=== PATIENT | female | born 1950 | race Caucasian/White ===

== ENCOUNTER → 2016-10-01 | Outpatient (CLI) | payer MEDICARE ==
[~2016-10-01] MED LIST: B6 PO; CALC-160 PO; CARNITINE PO; CHOL10003 PO; CHONDROITIN MSM; COCO100O2 PO; CYAN1TAB29 PO; EXEM25TA2 PO; FLAX340P PO; GABA600T2 PO; MILK500C PO; MULTI PO; TUMERIC PO; VITA1TAB46 PO; [UNRECOGNIZED DRUG - CODE] PO; [UNRECOGNIZED DRUG - MIXTURE]; [UNRECOGNIZED DRUG - OTHER]; [UNRECOGNIZED DRUG - OTHER] PO; [UNRECOGNIZED DRUG - OTHER] PO; [UNRECOGNIZED DRUG - OTHER] PO; kelp PO; probiotics
== END | disposition home or self-care (01) ==
LOC: RAD 13:33
PROVIDERS: ATTEND Nurse Practitioner Gerontology
DX: M17.0 Bilateral primary osteoarthritis of knee (principal); M25.762 Osteophyte, left knee; M25.462 Effusion, left knee; M25.461 Effusion, right knee

== ENCOUNTER → 2016-10-15 | Outpatient (CLI) | payer MEDICARE | END | disposition home or self-care (01) | LOC: CFH 10:33 | PROVIDERS: ATTEND Nurse Practitioner Gerontology | DX: Z13.820 Encounter for screening for osteoporosis (principal); C79.51 Secondary malignant neoplasm of bone; M25.561 Pain in right knee; M25.562 Pain in left knee; G89.29 Other chronic pain; Z91.81 History of falling; Z78.0 Asymptomatic menopausal state; Z90.13 Acquired absence of bilateral breasts and nipples | CPT/HCPCS: 77080 ==

== ENCOUNTER → 2016-10-22 | Outpatient (CLI) | payer MEDICARE ==
[~2016-10-22] MED LIST changes: +CELE100C PO; +LETR2.5T PO
== END | disposition home or self-care (01) ==
LOC: PETCFH 09:19
PROVIDERS: ATTEND Nurse Practitioner Gerontology
DX: C79.51 Secondary malignant neoplasm of bone (principal); C78.7 Secondary malignant neoplasm of liver and intrahepatic bile duct; C77.9 Secondary and unspecified malignant neoplasm of lymph node, unspecified; C78.00 Secondary malignant neoplasm of unspecified lung; J90 Pleural effusion, not elsewhere classified; J98.11 Atelectasis; Z85.3 Personal history of malignant neoplasm of breast; Z90.13 Acquired absence of bilateral breasts and nipples
CPT/HCPCS: 71020; 78815; A9552

== ENCOUNTER 2016-10-23 14:01 | Inpatient (IN) | payer MEDICARE ==
[~2016-10-23] VITALS: Ht 162.6 cm; Wt 69.3 kg
[~2016-10-23 14:01] MED LIST changes: -CELE100C PO; -LETR2.5T PO
[2016-10-23] MEDS ORDERED: SODIUM CHLORIDE FLUSH 10ML SYR IVF ONE (15:00)
[2016-10-23 15:36] LABS: HEMATOCRIT 40.7 % (34.6-47.8); HEMOGLOBIN 13.1 g/dL (11.7-16.4); WHITE BLOOD COUNT 6.1 x10^3/uL (3.4-10)
[2016-10-23 15:41] LABS: BLOOD UREA NITROGEN 14 mg/dL (7-18)
[2016-10-23] MEDS ORDERED: LIDOCAINE 1%, 20ML ONE (15:41)
[2016-10-23 15:46] LABS: ASPARTATE AMINO TRANSFERASE 56 U/L (15-37)
[2016-10-23 15:48] LABS: IS PT STATUS REG ER OR PRE ER? YES
[2016-10-23] MEDS ORDERED: CELE100C PO (16:41)
[2016-10-23] MEDS ORDERED: LETR2.5T PO (16:41)
[2016-10-23] MEDS ORDERED: GABA600T2 PO (16:41)
[2016-10-23] MEDS: GABAPENTIN 900 MG PO SCH ×2 (17:00→18:04)
[2016-10-23] MEDS ORDERED: SODIUM CHLORIDE FLUSH 10ML SYR IVF PRN (17:00)
[2016-10-23] MEDS ORDERED: ACETAMINOPHEN 325 MG TABLET PO PRN (17:30)
[2016-10-23] MEDS ORDERED: ONDANSETRON 2MG/ML, 2ML IVPush PRN (17:30)
[2016-10-23] MEDS ORDERED: morphine SULFATE 10 MG/ML, 1ML IVPush PRN (17:30)
[2016-10-23 18:45] VITALS: BP 154/79
[2016-10-23 20:25] VITALS: BP 154/79
[2016-10-23] MEDS: SODIUM CHLORIDE FLUSH 10ML SYR IVF SCH (21:00)
[2016-10-23] MEDS: LETROZOLE 2.5 MG TABLET PO SCH (21:00)
[2016-10-23] MEDS ORDERED: TUMERIC 1000 MG PO SCH (21:00)
[2016-10-24] MEDS: GABAPENTIN 300 MG CAPSULE PO SCH ×4 (00:23→23:19)
[2016-10-24 01:10] VITALS: BP 134/70
[2016-10-24] MEDS: KETOROLAC 30 MG/1 ML IVPush PRN ×2 (02:58→23:21)
[2016-10-24 06:57] VITALS: BP 129/79
[2016-10-24] MEDS: SODIUM CHLORIDE FLUSH 10ML SYR IVF SCH ×2 (09:00→20:37)
[2016-10-24] MEDS: SODIUM CHLORIDE 0.9% 1,000 ML IV SCH (11:32)
[2016-10-24 12:00] VITALS: BP 119/70
[2016-10-24] MEDS ORDERED: LIDOCAINE 1%, 20ML ONE (13:14)
[2016-10-24] MEDS ORDERED: FENTANYL PF 100 MCG/2ML ONE ×3 (13:47→15:11)
[2016-10-24] MEDS ORDERED: MIDAZOLAM 1 MG/ML, 2ML ONE (13:47)
[2016-10-24] MEDS ORDERED: ONDANSETRON 2MG/ML, 2ML ONE ×2 (14:15→18:25)
[2016-10-24] MEDS ORDERED: CEFAZOLIN 1,000 MG ONE (14:15)
[2016-10-24] MEDS ORDERED: SUCCINYLCHOLINE 20 MG/ML, 10ML ONE (14:15)
[2016-10-24] MEDS ORDERED: PROPOFOL 10 MG/ML, 20ML ONE (14:15)
[2016-10-24] MEDS ORDERED: DEXAMETHASONE 4 MG/ML, 1ML ONE (14:15)
[2016-10-24] MEDS ORDERED: EPHEDRINE 50 MG/ML, 1ML ONE (14:15)
[2016-10-24] MEDS ORDERED: TRANEXAMIC ACID 100 MG/ML, 10ML ONE (14:36)
[2016-10-24] MEDS ORDERED: HYDROmorphone 1 MG/ML, 1ML ONE ×2 (15:53→17:31)
[2016-10-24] MEDS ORDERED: ACETAMINOPHEN 325 MG TABLET PO PRN (16:30)
[2016-10-24] MEDS ORDERED: ONDANSETRON 2MG/ML, 2ML IVPush PRN (16:30)
[2016-10-24] MEDS ORDERED: PROMETHAZINE 25 MG/ML, 1ML IV PRN (16:30)
[2016-10-24] MEDS ORDERED: ALBUTEROL/IPRATROPIUM 2.5MG/0.5MG, 3 ML NPPB PRN (16:30)
[2016-10-24] MEDS ORDERED: FENTANYL PF 100 MCG/2ML IV PRN (16:30)
[2016-10-24] MEDS ORDERED: MEPERIDINE/PF 25MG/0.5ML IVPush PRN (16:30)
[2016-10-24] MEDS ORDERED: hydrALAzine 20 MG/ML, 1ML IV PRN (16:30)
[2016-10-24] MEDS ORDERED: OXYcodone 5 MG/5 ML ORAL.SOL UDC PO PRN (16:30)
[2016-10-24] MEDS ORDERED: LABETALOL 5MG/ML, 20ML IV PRN (16:30)
[2016-10-24] MEDS ORDERED: MIDAZOLAM 1 MG/ML, 2ML IV PRN (16:30)
[2016-10-24] MEDS ORDERED: OXYcodone 5 MG/5 ML ORAL.SOL UDC ONE (17:31)
[2016-10-24] MEDS: HYDROmorphone 1 MG/ML, 1ML IV PRN ×3 (17:36→18:12)
[2016-10-24] MEDS ORDERED: BUPIVACAINE/PF 0.25% ONE (18:08)
[2016-10-24 18:54] VITALS: BP 145/80
[2016-10-24] MEDS: LETROZOLE 2.5 MG TABLET PO SCH (21:00)
[2016-10-25 00:51] VITALS: BP 126/68
[2016-10-25 04:36] LABS: HEMATOCRIT 37.9 % (34.6-47.8); HEMOGLOBIN 12.3 g/dL (11.7-16.4); WHITE BLOOD COUNT 7.2 x10^3/uL (3.4-10)
[2016-10-25 04:51] LABS: ASPARTATE AMINO TRANSFERASE 95 U/L (15-37); BLOOD UREA NITROGEN 9 mg/dL (7-18)
[2016-10-25 06:44] VITALS: BP 109/59
[2016-10-25] MEDS: SODIUM CHLORIDE FLUSH 10ML SYR IVF SCH ×2 (09:00→21:20)
[2016-10-25] MEDS: GABAPENTIN 300 MG CAPSULE PO SCH ×2 (11:50→21:18)
[2016-10-25 12:53] VITALS: BP 107/55
[2016-10-25] MEDS: KETOROLAC 30 MG/1 ML IVPush PRN ×2 (14:12→23:18)
[2016-10-25] MEDS: OXYcodone IR 5MG TABLET PO PRN ×3 (16:33→21:38)
[2016-10-25] MEDS: SODIUM CHLORIDE 0.9% 1,000 ML IV SCH ×2 (16:36→21:30)
[2016-10-25 18:22] VITALS: BP 104/50
[2016-10-25] MEDS ORDERED: ACETAMINOPHEN 325 MG TABLET PO PRN ×2 (19:30→21:30)
[2016-10-25] MEDS ORDERED: morphine SULFATE 10 MG/ML, 1ML IVPush PRN ×2 (19:30→21:30)
[2016-10-25] MEDS ORDERED: SODIUM CHLORIDE FLUSH 10ML SYR IVF SCH (21:00)
[2016-10-25] MEDS: LETROZOLE 2.5 MG TABLET PO SCH (21:00)
[2016-10-25] MEDS ORDERED: ONDANSETRON 2MG/ML, 2ML IVPush PRN (21:30)
[2016-10-26 02:10] VITALS: BP 102/50
[2016-10-26] MEDS: GABAPENTIN 300 MG CAPSULE PO SCH ×3 (04:02→21:48)
[2016-10-26] MEDS: SODIUM CHLORIDE 0.9% 1,000 ML IV SCH (04:06)
[2016-10-26] MEDS: OXYcodone IR 5MG TABLET PO PRN ×3 (04:13→23:25)
[2016-10-26 07:00] VITALS: BP 102/61
[2016-10-26] MEDS: SODIUM CHLORIDE FLUSH 10ML SYR IVF SCH ×2 (09:00→21:48)
[2016-10-26 12:54] VITALS: BP 108/65
[2016-10-26] MEDS: ENOXAPARIN 40 MG/0.4 ML SQ SCH (16:47)
[2016-10-26 18:40] VITALS: BP 101/55
[2016-10-26] MEDS: LETROZOLE 2.5 MG TABLET PO SCH (21:00)
[2016-10-27] MEDS ORDERED: OMNIPAQUE 350 MG/ML, 100ML BOTTLE ONE (00:26)
[2016-10-27 00:40] VITALS: BP 127/67
[2016-10-27] MEDS: GABAPENTIN 300 MG CAPSULE PO SCH ×3 (03:33→21:08)
[2016-10-27] MEDS: OXYcodone IR 5MG TABLET PO PRN ×5 (03:50→21:08)
[2016-10-27 05:13] LABS: HEMATOCRIT 36.3 % (34.6-47.8); HEMOGLOBIN 11.7 g/dL (11.7-16.4); WHITE BLOOD COUNT 7.8 x10^3/uL (3.4-10)
[2016-10-27 05:26] LABS: ASPARTATE AMINO TRANSFERASE 124 U/L (15-37); BLOOD UREA NITROGEN 9 mg/dL (7-18)
[2016-10-27 07:42] VITALS: BP 128/68
[2016-10-27] MEDS: SODIUM CHLORIDE FLUSH 10ML SYR IVF SCH ×2 (08:10→21:09)
[2016-10-27 13:38] VITALS: BP 125/70
[2016-10-27] MEDS: ENOXAPARIN 40 MG/0.4 ML SQ SCH (16:14)
[2016-10-27 20:22] VITALS: BP 126/71
[2016-10-27] MEDS: LETROZOLE 2.5 MG TABLET PO SCH (23:20)
[2016-10-28] MEDS: OXYcodone IR 5MG TABLET PO PRN ×6 (03:50→23:11)
[2016-10-28] MEDS: GABAPENTIN 300 MG CAPSULE PO SCH ×3 (04:00→20:52)
[2016-10-28] MEDS: SODIUM CHLORIDE FLUSH 10ML SYR IVF SCH ×2 (09:00→20:52)
[2016-10-28] MEDS ORDERED: GADOBUTROL 7.5 MMOL/7.5 ML PFS ONE (12:47)
[2016-10-28 13:42] VITALS: BP 130/67
[2016-10-28] MEDS: ENOXAPARIN 40 MG/0.4 ML SQ SCH (14:35)
[2016-10-28 19:15] VITALS: BP 128/70
[2016-10-28] MEDS: LETROZOLE 2.5 MG TABLET PO SCH (21:00)
[2016-10-29 02:30] VITALS: BP 110/66
[2016-10-29] MEDS: GABAPENTIN 300 MG CAPSULE PO SCH ×4 (04:00→20:21)
[2016-10-29 04:39] LABS: HEMATOCRIT 32.9 % (34.6-47.8); HEMOGLOBIN 10.6 g/dL (11.7-16.4); WHITE BLOOD COUNT 7.4 x10^3/uL (3.4-10)
[2016-10-29 04:55] LABS: BLOOD UREA NITROGEN 7 mg/dL (7-18)
[2016-10-29 04:58] LABS: ASPARTATE AMINO TRANSFERASE 78 U/L (15-37)
[2016-10-29 06:52] VITALS: BP 114/66
[2016-10-29] MEDS: OXYcodone IR 5MG TABLET PO PRN ×3 (08:03→22:16)
[2016-10-29] MEDS: SODIUM CHLORIDE FLUSH 10ML SYR IVF SCH ×2 (08:04→20:26)
[2016-10-29] MEDS ORDERED: FENTANYL PF 100 MCG/2ML ONE ×2 (10:31)
[2016-10-29] MEDS ORDERED: MIDAZOLAM 1 MG/ML, 5ML ONE (10:32)
[2016-10-29] MEDS ORDERED: FLUMAZENIL 0.1 MG/1 ML, 5ML ONE (10:32)
[2016-10-29] MEDS ORDERED: LIDOCAINE 1%, 20ML ONE (10:32)
[2016-10-29] MEDS ORDERED: NALOXONE 1 MG/ML, 2ML ONE (10:32)
[2016-10-29 14:00] VITALS: BP 111/43
[2016-10-29] MEDS: ENOXAPARIN 40 MG/0.4 ML SQ SCH (17:00)
[2016-10-29 19:02] VITALS: BP 139/61
[2016-10-29] MEDS: LETROZOLE 2.5 MG TABLET PO SCH (21:31)
[2016-10-30 02:50] VITALS: BP 110/65
[2016-10-30] MEDS: GABAPENTIN 300 MG CAPSULE PO SCH ×3 (04:50→21:31)
[2016-10-30] MEDS: OXYcodone IR 5MG TABLET PO PRN ×3 (06:09→16:04)
[2016-10-30 06:55] VITALS: BP 125/68
[2016-10-30] MEDS: SODIUM CHLORIDE FLUSH 10ML SYR IVF SCH ×2 (10:37→21:00)
[2016-10-30 13:25] VITALS: BP 116/65
[2016-10-30] MEDS: ENOXAPARIN 40 MG/0.4 ML SQ SCH (16:04)
[2016-10-30 18:46] VITALS: BP 126/66
[2016-10-30] MEDS: LETROZOLE 2.5 MG TABLET PO SCH (21:35)
[2016-10-31] MEDS: OXYcodone IR 5MG TABLET PO PRN ×6 (01:06→21:40)
[2016-10-31 02:33] VITALS: BP 131/68
[2016-10-31] MEDS: GABAPENTIN 300 MG CAPSULE PO SCH ×3 (03:34→20:55)
[2016-10-31 08:00] VITALS: BP 129/72
[2016-10-31] MEDS: SODIUM CHLORIDE FLUSH 10ML SYR IVF SCH ×2 (09:00→21:00)
[2016-10-31 12:07] VITALS: BP 122/72
[2016-10-31] MEDS: ENOXAPARIN 40 MG/0.4 ML SQ SCH (17:35)
[2016-10-31 18:18] VITALS: BP 119/64
[2016-10-31] MEDS: LETROZOLE 2.5 MG TABLET PO SCH (20:54)
[2016-11-01 01:45] VITALS: BP 137/77
[2016-11-01] MEDS: GABAPENTIN 300 MG CAPSULE PO SCH ×3 (04:08→21:13)
[2016-11-01 06:50] VITALS: BP 118/68
[2016-11-01] MEDS: SODIUM CHLORIDE FLUSH 10ML SYR IVF SCH ×2 (07:53→21:14)
[2016-11-01] MEDS: OXYcodone IR 5MG TABLET PO PRN ×4 (07:53→21:14)
[2016-11-01] MEDS ORDERED: ACETAMINOPHEN 325 MG TABLET PO PRN (14:00)
[2016-11-01] MEDS ORDERED: ONDANSETRON 2MG/ML, 2ML IVPush PRN (14:00)
[2016-11-01 14:25] VITALS: BP 143/78
[2016-11-01] MEDS: ENOXAPARIN 40 MG/0.4 ML SQ SCH (17:05)
[2016-11-01 18:43] VITALS: BP 122/64
[2016-11-01] MEDS: LETROZOLE 2.5 MG TABLET PO SCH (21:00)
[2016-11-02] MEDS: OXYcodone IR 5MG TABLET PO PRN ×5 (01:32→20:43)
[2016-11-02] MEDS: GABAPENTIN 300 MG CAPSULE PO SCH ×3 (03:43→20:42)
[2016-11-02 03:50] VITALS: BP 124/73
[2016-11-02 06:57] VITALS: BP 147/70
[2016-11-02] MEDS: SODIUM CHLORIDE FLUSH 10ML SYR IVF SCH ×2 (09:00→20:45)
[2016-11-02 14:32] VITALS: BP 134/73
[2016-11-02] MEDS: ENOXAPARIN 40 MG/0.4 ML SQ SCH (16:58)
[2016-11-02 19:11] VITALS: BP 148/71
[2016-11-02] MEDS: LETROZOLE 2.5 MG TABLET PO SCH (20:41)
[2016-11-03 01:06] VITALS: BP 121/71
[2016-11-03] MEDS: OXYcodone IR 5MG TABLET PO PRN ×4 (02:11→20:56)
[2016-11-03] MEDS: GABAPENTIN 300 MG CAPSULE PO SCH ×3 (04:46→17:30)
[2016-11-03 07:19] VITALS: BP 138/79
[2016-11-03] MEDS: SODIUM CHLORIDE FLUSH 10ML SYR IVF SCH ×2 (08:59→20:57)
[2016-11-03 13:49] VITALS: BP 150/75
[2016-11-03] MEDS: ENOXAPARIN 40 MG/0.4 ML SQ SCH (17:30)
[2016-11-03 18:44] VITALS: BP 126/71
[2016-11-03] MEDS: LETROZOLE 2.5 MG TABLET PO SCH (23:10)
[2016-11-04] MEDS: OXYcodone IR 5MG TABLET PO PRN ×4 (00:47→20:14)
[2016-11-04 00:59] VITALS: BP 133/72
[2016-11-04] MEDS: GABAPENTIN 300 MG CAPSULE PO SCH ×4 (01:54→20:14)
[2016-11-04 04:35] LABS: HEMATOCRIT 35.9 % (34.6-47.8); HEMOGLOBIN 11.9 g/dL (11.7-16.4); WHITE BLOOD COUNT 8.3 x10^3/uL (3.4-10)
[2016-11-04 04:58] LABS: ASPARTATE AMINO TRANSFERASE 44 U/L (15-37); BLOOD UREA NITROGEN 6 mg/dL (7-18)
[2016-11-04 06:45] VITALS: BP 129/68
[2016-11-04] MEDS: SODIUM CHLORIDE FLUSH 10ML SYR IVF SCH ×2 (09:10→20:16)
[2016-11-04] MEDS: SODIUM CHLORIDE 0.9% 1,000 ML IV SCH (10:30)
[2016-11-04 14:00] VITALS: BP 130/75
[2016-11-04] MEDS ORDERED: LIDOCAINE 2%, 20ML ONE (14:24)
[2016-11-04] MEDS ORDERED: MIDAZOLAM 1 MG/ML, 5ML ONE (14:27)
[2016-11-04] MEDS ORDERED: FLUMAZENIL 0.1 MG/1 ML, 5ML ONE (14:28)
[2016-11-04] MEDS ORDERED: NALOXONE 1 MG/ML, 2ML ONE (14:28)
[2016-11-04] MEDS ORDERED: FENTANYL PF 100 MCG/2ML ONE (14:28)
[2016-11-04] MEDS: ENOXAPARIN 40 MG/0.4 ML SQ SCH (17:09)
[2016-11-04 19:27] VITALS: BP 132/75
[2016-11-04] MEDS: LETROZOLE 2.5 MG TABLET PO SCH (20:12)
[2016-11-05] MEDS: OXYcodone IR 5MG TABLET PO PRN ×6 (00:20→21:54)
[2016-11-05] MEDS: SODIUM CHLORIDE 0.9% 1,000 ML IV SCH (00:29)
[2016-11-05 01:19] VITALS: BP 142/68
[2016-11-05] MEDS: GABAPENTIN 300 MG CAPSULE PO SCH ×3 (01:33→17:07)
[2016-11-05 07:20] VITALS: BP 106/64
[2016-11-05] MEDS: SODIUM CHLORIDE FLUSH 10ML SYR IVF SCH ×2 (09:03→21:00)
[2016-11-05 14:20] VITALS: BP 124/59
[2016-11-05] MEDS: ENOXAPARIN 40 MG/0.4 ML SQ SCH (17:07)
[2016-11-05 18:24] VITALS: BP 145/75
[2016-11-05] MEDS: LETROZOLE 2.5 MG TABLET PO SCH (21:01)
[2016-11-06] MEDS: GABAPENTIN 300 MG CAPSULE PO SCH ×3 (01:07→16:11)
[2016-11-06 01:30] VITALS: BP 108/67
[2016-11-06] MEDS: OXYcodone IR 5MG TABLET PO PRN ×5 (02:54→22:34)
[2016-11-06 07:38] VITALS: BP 133/68
[2016-11-06] MEDS: SODIUM CHLORIDE FLUSH 10ML SYR IVF SCH ×2 (07:39→22:21)
[2016-11-06 13:34] VITALS: BP 102/54
[2016-11-06] MEDS: ENOXAPARIN 40 MG/0.4 ML SQ SCH (16:11)
[2016-11-06] MEDS: METHOCARBAMOL 1,000 MG in DEXTROSE 5% 100 ML IV SCH (16:12)
[2016-11-06 19:32] VITALS: BP 126/72
[2016-11-06] MEDS: LETROZOLE 2.5 MG TABLET PO SCH (21:00)
[2016-11-07] MEDS: METHOCARBAMOL 1,000 MG in DEXTROSE 5% 100 ML IV SCH ×2 (00:31→08:35)
[2016-11-07] MEDS: GABAPENTIN 300 MG CAPSULE PO SCH ×3 (00:31→17:23)
[2016-11-07 01:54] VITALS: BP 133/66
[2016-11-07] MEDS: OXYcodone IR 5MG TABLET PO PRN ×5 (05:04→21:46)
[2016-11-07 07:21] VITALS: BP 123/74
[2016-11-07] MEDS: SODIUM CHLORIDE FLUSH 10ML SYR IVF SCH ×2 (08:35→20:17)
[2016-11-07 14:11] VITALS: BP 115/70
[2016-11-07] MEDS: ENOXAPARIN 40 MG/0.4 ML SQ SCH (17:24)
[2016-11-07 18:52] VITALS: BP 118/70
[2016-11-07] MEDS: LETROZOLE 2.5 MG TABLET PO SCH (20:18)
[2016-11-08 01:06] VITALS: BP 140/70
[2016-11-08] MEDS: GABAPENTIN 300 MG CAPSULE PO SCH ×3 (01:57→17:43)
[2016-11-08] MEDS: OXYcodone IR 5MG TABLET PO PRN ×4 (01:57→22:23)
[2016-11-08] MEDS: SODIUM CHLORIDE FLUSH 10ML SYR IVF SCH ×2 (08:37→21:22)
[2016-11-08 09:06] VITALS: BP 102/53
[2016-11-08 14:49] VITALS: BP 113/62
[2016-11-08] MEDS: ENOXAPARIN 40 MG/0.4 ML SQ SCH (17:43)
[2016-11-08 18:34] VITALS: BP 110/68
[2016-11-08] MEDS: LETROZOLE 2.5 MG TABLET PO SCH (21:17)
[2016-11-09] MEDS: GABAPENTIN 300 MG CAPSULE PO SCH ×3 (01:10→17:45)
[2016-11-09 02:45] VITALS: BP 138/72
[2016-11-09] MEDS: OXYcodone IR 5MG TABLET PO PRN ×5 (05:00→23:55)
[2016-11-09 06:59] VITALS: BP 119/54
[2016-11-09] MEDS: SODIUM CHLORIDE FLUSH 10ML SYR IVF SCH (09:58)
[2016-11-09 13:54] VITALS: BP 115/64
[2016-11-09] MEDS: ENOXAPARIN 40 MG/0.4 ML SQ SCH (16:30)
[2016-11-09 19:13] VITALS: BP 140/64
[2016-11-09] MEDS: LETROZOLE 2.5 MG TABLET PO SCH (21:00)
[2016-11-10] MEDS: GABAPENTIN 300 MG CAPSULE PO SCH ×2 (01:24→10:04)
[2016-11-10 02:26] VITALS: BP 121/60
[2016-11-10] MEDS: OXYcodone IR 5MG TABLET PO PRN ×3 (04:00→15:48)
[2016-11-10 07:16] VITALS: BP 112/61
[2016-11-10] MEDS ORDERED: ONDA4TAB13 SL ×2 (09:34→10:11)
[2016-11-10] MEDS ORDERED: OXYC5TAB3 PO (09:34)
[2016-11-10] MEDS ORDERED: ENOX40SY4 SQ (09:34)
[2016-11-10] MEDS ORDERED: POLY17PO5 PO (09:36)
[2016-11-10 15:21] VITALS: BP 137/54
== END 2016-11-10 16:40 | DRG 480 ==
LOC: ED 15:36 → EDIP 16:57 → SUATTDRO 17:03 → 3NW 18:43
PROVIDERS: ADMIT Internal Medicine; ATTEND Internal Medicine
PROC: 0W993ZZ Drainage of Right Pleural Cavity, Percutaneous Approach (ICD-10-PCS; 2016-10-23)
PROC: 0W993ZZ Drainage of Right Pleural Cavity, Percutaneous Approach (ICD-10-PCS; 2016-10-24)
PROC: 0QH736Z Insertion of Intramedullary Internal Fixation Device into Left Upper Femur, Percutaneous Approach (ICD-10-PCS; principal; 2016-10-24 14:00)
PROC: 07DR3ZX Extraction of Iliac Bone Marrow, Percutaneous Approach, Diagnostic (ICD-10-PCS; 2016-10-29)
PROC: 0W9930Z Drainage of Right Pleural Cavity with Drainage Device, Percutaneous Approach (ICD-10-PCS; 2016-11-04)
DX: M84.452A Pathological fracture, left femur, initial encounter for fracture (principal); E43 Unspecified severe protein-calorie malnutrition; J91.0 Malignant pleural effusion; C78.00 Secondary malignant neoplasm of unspecified lung; C50.919 Malignant neoplasm of unspecified site of unspecified female breast; C78.7 Secondary malignant neoplasm of liver and intrahepatic bile duct; D64.9 Anemia, unspecified; C79.51 Secondary malignant neoplasm of bone; J93.9 Pneumothorax, unspecified; F32.9 Major depressive disorder, single episode, unspecified; F41.9 Anxiety disorder, unspecified; R09.02 Hypoxemia; Z79.811 Long term (current) use of aromatase inhibitors; Z80.3 Family history of malignant neoplasm of breast; Z85.3 Personal history of malignant neoplasm of breast; Z86.73 Personal history of transient ischemic attack (TIA), and cerebral infarction without residual deficits; Z92.21 Personal history of antineoplastic chemotherapy; Z90.13 Acquired absence of bilateral breasts and nipples; Z68.26 Body mass index [BMI] 26.0-26.9, adult; Z88.8 Allergy status to other drugs, medicaments and biological substances; Z88.6 Allergy status to analgesic agent
CPT/HCPCS: 20220; 32555; 36415; 70470; 70553; 71010; 71020; 71250; 76001; 77012; 80053; 81003; 82150; 82565; 82945; 83605; 83615; 83735; 83880; 83986; 84100; 84157; 84484; 85025; 85610; 85730; 87040; 87070; 87075; 87102; 87116; 87205; 87206; 88304; 88305; 88307; 88311; 88341; 88342; 88360; 88361; 88374; 89051; 93005; 99156; 99157; 99291; A9585; C1713; J0690; J1100; J1170; J1650; J1885; J2250; J2405; J2704; J3010; J3490; Q9967; C1729; G0461; J0330; J2310; J2800; J7030

== ENCOUNTER 2016-11-16 14:54 | Inpatient (IN) | payer MEDICARE ==
[~2016-11-16] VITALS: Ht 162.6 cm; Wt 69.1 kg
[~2016-11-16 14:54] MED LIST changes: +CELE100C PO; +ENOX40SY4 SQ; +LETR2.5T PO; +ONDA4TAB13 SL; +OXYC5TAB3 PO; +POLY17PO5 PO
[2016-11-16 15:51] VITALS: BP 122/75
[2016-11-16] MEDS ORDERED: MAGN400T7 PO (16:10)
[2016-11-16] MEDS ORDERED: DOCU100C33 PO (16:10)
[2016-11-16] MEDS ORDERED: ZINC50TA2 PO (16:10)
[2016-11-16] MEDS ORDERED: ENOX40SY4 SQ (16:17)
[2016-11-16] MEDS ORDERED: CHOL100012 PO (16:17)
[2016-11-16] MEDS ORDERED: CALC-451 PO (16:17)
[2016-11-16] MEDS ORDERED: ONDA4TAB7 PO (16:17)
[2016-11-16] MEDS ORDERED: OXYC5CAP2 PO (16:17)
[2016-11-16] MEDS ORDERED: MIDAZOLAM 1 MG/ML, 2ML ONE (20:52)
[2016-11-16] MEDS ORDERED: FENTANYL PF 100 MCG/2ML ONE ×2 (20:52)
[2016-11-16] MEDS ORDERED: DEXAMETHASONE 4 MG/ML, 1ML ONE (21:23)
[2016-11-16] MEDS ORDERED: ONDANSETRON 2MG/ML, 2ML ONE (21:23)
[2016-11-16] MEDS ORDERED: PROPOFOL 10 MG/ML, 20ML ONE (21:23)
[2016-11-16] MEDS ORDERED: CEFAZOLIN 1,000 MG ONE (21:23)
[2016-11-16] MEDS ORDERED: LABETALOL 5MG/ML, 20ML IV PRN (21:30)
[2016-11-16] MEDS ORDERED: ONDANSETRON 2MG/ML, 2ML IVPush PRN (21:30)
[2016-11-16] MEDS ORDERED: PROMETHAZINE 25 MG/ML, 1ML IV PRN (21:30)
[2016-11-16] MEDS ORDERED: MEPERIDINE/PF 25MG/0.5ML IVPush PRN (21:30)
[2016-11-16] MEDS ORDERED: FENTANYL PF 100 MCG/2ML IV PRN (21:30)
[2016-11-16] MEDS ORDERED: OXYcodone 5 MG/5 ML ORAL.SOL UDC PO PRN (21:30)
[2016-11-16] MEDS ORDERED: HYDROmorphone 1 MG/ML, 1ML IV PRN (21:30)
[2016-11-16] MEDS ORDERED: hydrALAzine 20 MG/ML, 1ML IV PRN (21:30)
[2016-11-16] MEDS ORDERED: OXYcodone 5 MG/5 ML ORAL.SOL UDC ONE (22:26)
[2016-11-16 23:08] VITALS: BP 118/62
[2016-11-17 01:58] VITALS: BP 143/63
[2016-11-17] MEDS: CEFAZOLIN PMX 1GM/50ML 50 ML IV SCH ×2 (05:38→16:14)
[2016-11-17 08:32] VITALS: BP 104/61
[2016-11-17 09:45] VITALS: BP 121/61
[2016-11-17] MEDS: GABAPENTIN 300 MG CAPSULE PO SCH ×2 (12:38→21:35)
[2016-11-17] MEDS: ENOXAPARIN 40 MG/0.4 ML SQ SCH (12:39)
[2016-11-17 13:42] VITALS: BP 112/66
[2016-11-17] MEDS: OXYcodone/APAP 5/325MG TABLET PO PRN ×3 (14:22→23:25)
[2016-11-17 19:19] VITALS: BP 124/66
[2016-11-17] MEDS ORDERED: LETROZOLE 2.5 MG TABLET PO SCH (21:00)
[2016-11-17] MEDS: ONDANSETRON ODT 8 MG PO PRN (21:34)
[2016-11-17] MEDS: CALCIUM CARBONATE 500 MG TAB.CHEW PO SCH (21:36)
[2016-11-18 01:53] VITALS: BP 144/75
[2016-11-18] MEDS: OXYcodone/APAP 5/325MG TABLET PO PRN (03:42)
[2016-11-18] MEDS: GABAPENTIN 300 MG CAPSULE PO SCH ×2 (05:48→13:14)
[2016-11-18 07:41] VITALS: BP 130/71
[2016-11-18] MEDS ORDERED: OXYcodone/APAP 10/325MG TABLET ONE (08:55)
[2016-11-18] MEDS: CALCIUM CARBONATE 500 MG TAB.CHEW PO SCH (08:59)
[2016-11-18] MEDS ORDERED: OXYcodone/APAP 10/325MG TABLET PO PRN (09:00)
[2016-11-18] MEDS ORDERED: DOCUSATE 100 MG CAPSULE PO SCH (09:00)
[2016-11-18] MEDS ORDERED: MAGNESIUM OXIDE 400 MG TABLET PO SCH (09:00)
[2016-11-18] MEDS ORDERED: ZINC SULFATE 220 MG CAPSULE PO SCH (09:00)
[2016-11-18] MEDS ORDERED: CHOLECALCIFEROL 1,000 UNIT TABLET PO SCH (09:00)
[2016-11-18] MEDS: ONDANSETRON ODT 8 MG PO PRN (11:50)
[2016-11-18] MEDS: ENOXAPARIN 40 MG/0.4 ML SQ SCH (13:14)
[2016-11-18 13:36] VITALS: BP 109/54
[2016-11-18 16:55] VITALS: BP 121/73
== END 2016-11-18 17:05 | DRG 857 ==
LOC: OR 14:54 → 4NOR 16:45 → OR 23:25 → 4NOR 23:26
PROVIDERS: ADMIT Orthopaedic Surgery Orthopaedic Surgery of the Spine; ATTEND Orthopaedic Surgery Orthopaedic Surgery of the Spine
PROC: 0JBM0ZZ Excision of Left Upper Leg Subcutaneous Tissue and Fascia, Open Approach (ICD-10-PCS; principal; 2016-11-16 19:00)
DX: T81.4XXA Infection following a procedure, initial encounter (principal); C79.51 Secondary malignant neoplasm of bone; J91.0 Malignant pleural effusion; C78.7 Secondary malignant neoplasm of liver and intrahepatic bile duct; J93.9 Pneumothorax, unspecified; G62.2 Polyneuropathy due to other toxic agents; T45.1X5A Adverse effect of antineoplastic and immunosuppressive drugs, initial encounter; Y83.8 Other surgical procedures as the cause of abnormal reaction of the patient, or of later complication, without mention of misadventure at the time of the procedure; Z80.6 Family history of leukemia; Z85.3 Personal history of malignant neoplasm of breast; Z90.13 Acquired absence of bilateral breasts and nipples; Y92.89 Other specified places as the place of occurrence of the external cause; Z92.3 Personal history of irradiation; Z92.21 Personal history of antineoplastic chemotherapy; Z87.311 Personal history of (healed) other pathological fracture
CPT/HCPCS: 71010; J0690; J1100; J1650; J2250; J2405; J2704; J3010; Q0162